=== PATIENT | female | born 1965 | race Two or more races ===

== ENCOUNTER 2019-10-29 16:20 | Inpatient (IN) | payer OTHER ==
[~2019-10-29] VITALS: Ht 175.3 cm; Wt 99.8 kg
--- OUTSIDE RECORDS SUMMARY | 2019-10-29 16:24 | XMS REPORT | Continuity of Care Document ---
Author Author Jaime Pike [employer] AleksandraTANIA [facility] Information [employer] Address Unknown Phone Unavailable Care Team Providers Care Team Leader Surgery Name Role Phone [facility] Information Exchange Unavailable Un available Problems Problem Status Onset Date Classification Date Reported Comments Source BACK PAIN Active [facility] NUTR CONSULT Active [facility] N47.26 Active [facility] Medications No Data Provided for This Section Allergies, Adverse Reactions, Alerts No Known Medication Allergies Immunizations No Data Provided for This Section Results No Data Provided for This Section Pathology Reports No Data Provided for This Section Diagnostic Reports Report Value Date Source Spine lumbar series DX Spine l umbar series DX COMPARISON: None CLINICAL HISTORY: M47.26 Other spondylosis with radiculopathy, lumbar region; FINDINGS: Five views of the lumbar spine are submitted for review. 5 nonrib-bearing lumbar-type vertebra ar e visualized. Visualized bones demonstrate normal radiodensity. There is no evidence for fracture or subluxation. There is mild anterior spondylosis at L3-L4 level. Spondylosis and degenerative disc disease at L4-L5 and L5-S1 levels. Facet arthrosis is noted throughout the mid to lower lumbar spine. The SI joints demonstrate normal morphology. IMPRESSION: Spondylosis, degenerative disc disease and facet arthrosis is present in the mid to lower lumbar spine. No evidence for fracture or subluxation. SL: [id number] 02/01/2016 [facility] Consultation Notes No Data Provided for This Section Discharge Summaries No Data Provided for This Section History and Physicals No Data Provided for This Section Vital Signs No Data Provided for This Section Encounters Location Location Details Encounter Type Encounter Number Reason For Visit Attending Provider ADM Date DC Date Status Source [facility] Outpatient Imaging [facility] Outpatient [id number] Gisselle Crockett 02/06/2014 02/07/2014 [facility] OP Therapy Patients [id number] Thomas Castro 07/28/2014 08/27/2014 [facility] OP Therapy Patients [id number] Thomas Castro 08/31/2014 09/30/2014 [facility] OP Therapy Patients [id number] Thomas Matthew 09/30/2014 10/30/2014 [facility] OP Therapy Patients [id number] Thomas Matthew 11/02/2014 12/02/2014 [facility] OP Therapy Patients [id number] Thomas Matthew 12/10/2014 01/09/2015 [facility] OP Therapy Patients [id number] Thomas Matthew 01/11/2015 02/10/2015 [facility] OP Therapy Patients [id number] Thomas Matthew 02/16/2015 03/18/2015 [facility] Institution Patient [id number] Thomas Matthew 02/22/2015 05/24/2015 [facility] Outpatient [id number] REEBA GIACOMO 03/17/2015 Active [facility] Outpatient [id number] REEBA GIACOMO 03/17/2015 Active [facility] Outpatient [id number] REEBA GIACOMO 03/17/[address] [facility] [place] [place] OP Therapy Patients [id number] Thomas Matthew 03/28/2015 04/27/2015 [facility] OP Therapy Patients [id number] Thomas Matthew 04/27/2015 05/27/2015 [facility] OP Therapy Patients [id number] Thomas Matthew 06/01/2015 07/01/2015 [facility] OP Therapy Patients [id number] Thomas Matthew 07/13/2015 08/12/2015 [facility] OP Therapy Patients [id number] Thomas Matthew 08/29/2015 09/28/2015 [facility] OP Therapy Patients [id number] Thomas Matthew 10/24/2015 11/23/2015 [facility] Outpatient [id number] Base Hamid 02/01/2016 02/02/2016 [facility] Procedures No Data Provided for This Section Assessment and Plan No Data Provided for This Section Plan of Care No Data Provided for This Section Social History Social History Date Source Social History TypeResponse Smoking Status Former smoker; Type: Cigarettes; Exposure to Tobacco Smoke None; Cigarette Smoking Last 365 Days Yes; Reg Smoking Cessation Counseling No1 1Patient quit smoking 01/22/2015 03/18/2015 [facility] Social History TypeResponse Smoking Status Former smoker; Type: Cigarettes; Exposure to Tobacco Smoke None; Cigarette Smoking Last 365 Days Yes; Reg Smoking Cessation Counseling No1 1Patient quit smoking 01/22/2015 03/18/2015 [facility] Family History No Data Provided for This Section Advance Directives No Data Provided for This Section Functional Status No Data Provided for This Section
--- OUTSIDE RECORDS SUMMARY | 2019-10-29 16:24 | XMS REPORT | Summary of Care ---
Author Organization Unknown Address Unknown Phone Unavailable Encounter HQ Giftyr_alonzokrishan([facility]) [id number] Date(s): 02/06/14 - 02/06/14 [facility] Outpatient Imaging [address] [address]- [place] Discharge Disposition: Home Physician Attending: Gisselle Crockett MD Reason for Visit V76.12 - SCREEN MAMMOGRA Problem List No data available for this section Allergies, Adverse Reactions, Alerts No data available for this section Medications No data available for this section Medications Administered During Your Visit No data available for this section Immunizations No data available for this section
--- OUTSIDE RECORDS SUMMARY | 2019-10-29 16:25 | XMS REPORT | Summary of Care ---
Author Author [facility] Organization [facility] Address Unknown Phone Unavailable Encounter HQ Encntr_alias(FIN) [id number] Date(s): 12/10/14 - 01/08/15 [facility] Discharge Disposition: Home Attending Physician: Thomas Castro MD Vital Signs No data available for this section Problem List No data available for this section Allergies, Adverse Reactions, Alerts No data available for this section Medications No data available for this section Results No data available for this section Immunizations No data available for this section Procedures No data available for this section Social History No data available for this section Assessment and Plan No data available for this section
--- OUTSIDE RECORDS SUMMARY | 2019-10-29 16:25 | XMS REPORT | Summary of Care ---
Author Author [facility] Organization [facility] Address Unknown Phone Unavailable Encounter HQ Encntr_alias(FIN) [id number] Date(s): 06/01/15 - 06/30/[address] [facility] Discharge Disposition: Home Attending Physician: Thomas Castro MD Vital Signs No data available for this section Problem List No data available for this section Allergies, Adverse Reactions, Alerts Substance Reaction Severity Status NKDA Active Medications No data available for this section Results No data available for this section Immunizations No data available for this section Procedures No data available for this section Social History Social History Type Response Smoking Status Former smoker; Type: Cigare ttes; Exposure to Tobacco Smoke None; Cigarette Smoking Last 365 Days Yes; Reg Smoking Cessation Counseling No1 1Patient quit smoking 01/22/2015 Assessment and Plan No data available for this section
--- OUTSIDE RECORDS SUMMARY | 2019-10-29 16:25 | XMS REPORT | Summary of Care ---
Author Author [facility] Organization [facility] Address Unknown Phone Unavailable Encounter HQ Encntr_alias(FIN) [id number] Date(s): 06/01/15 - 06/30/15 [facility] Discharge Disposition: Home Attending Physician: Thomas [...]
--- OUTSIDE RECORDS SUMMARY | 2019-10-29 16:25 | XMS REPORT | Summary of Care ---
Author Author [facility] Organization [facility] Address Unknown Phone Unavailable Encounter HQ Encntr_alias(FIN) [id number] Date(s): 04/27/15 - 05/26/15 [facility] Discharge Disposition: Home Attending Physician: Thomas [...]
--- OUTSIDE RECORDS SUMMARY | 2019-10-29 16:25 | XMS REPORT | Summary of Care ---
Author Author [facility] Organization [facility] Address Unknown Phone Unavailable Encounter HQ Encntr_alikrishan(FIN) [id number] Date(s): 02/01/16 - 02/01/16 [facility] [address] [place] [address]- Discharge Disposition: Home or Self Care Attending Physician: Jhon Carlos MD Vital Signs No data available for [...]
--- OUTSIDE RECORDS SUMMARY | 2019-10-29 16:25 | XMS REPORT | Summary of Care ---
Author Author [facility] Organization [facility] Address Unknown Phone Unavailable Encounter HQ Encntr_alias(FIN) [id number] Date(s): 07/13/15 - 08/11/15 [facility] Discharge Disposition: Home Attending Physician: Thomas Castro [...]
--- OUTSIDE RECORDS SUMMARY | 2019-10-29 16:25 | XMS REPORT | Summary of Care ---
Author Author [facility] Organization [facility] Address Unknown Phone Unavailable Encounter HQ Encntr_alias(FIN) [id number] Date(s): 01/11/15 - 02/09/15 [facility] Discharge Disposition: Home Attending Physician: Thomas Castro [...]
--- OUTSIDE RECORDS SUMMARY | 2019-10-29 16:25 | XMS REPORT | Summary of Care ---
Author Author [facility] Organization [facility] Address Unknown Phone Unavailable Encounter HQ Encntr_alias(FIN) [id number] Date(s): 08/29/15 - 09/27/15 [facility] Discharge Disposition: Home Attending Physician: Thomas [...]
--- OUTSIDE RECORDS SUMMARY | 2019-10-29 16:25 | XMS REPORT | Summary of Care ---
Author Organization Unknown Address Unknown Phone Unavailable Encounter HQ Encntr_margareth(JIHAN) [id number] Date(s): 09/30/14 - 10/29/14 [facility] Discharge Disposition: Home Physician Attending: Thomas Castro MD Vital Signs No data [...]
--- OUTSIDE RECORDS SUMMARY | 2019-10-29 16:25 | XMS REPORT | Summary of Care ---
Author Author [facility] Organization [facility] Address Unknown Phone Unavailable Encounter HQ Encntr_alias(FIN) [id number] Date(s): 03/28/15 - 04/26/15 [facility] Discharge Disposition: Home Attending Physician: Thomas [...]
--- OUTSIDE RECORDS SUMMARY | 2019-10-29 16:25 | XMS REPORT | Summary of Care ---
Author Author [facility] Organization [facility] Address Unknown Phone Unavailable Encounter HQ Encntr_alikrishan(FIN) [id number] Date(s): 02/22/15 - 05/23/15 [facility] Attending Physician: Thomas Castro MD Vital Signs [...]
--- OUTSIDE RECORDS SUMMARY | 2019-10-29 16:25 | XMS REPORT | Summary of Care ---
Author Author [facility] Organization [facility] Address Unknown Phone Unavailable Encounter HQ Encntr_alias(FIN) [id number] Date(s): 02/16/15 - 03/17/15 [facility] Discharge Disposition: Home Attending Physician: Thomas Castro [...]
--- OUTSIDE RECORDS SUMMARY | 2019-10-29 16:25 | XMS REPORT | Summary of Care ---
Author Organization Unknown Address Unknown Phone Unavailable Encounter HQ Shmuelntr_margareth(JIHAN) [id number] Date(s): 11/02/14 - 12/01/14 [facility] Discharge Disposition: Home Physician Attending: Thomas Castro [...]
--- OUTSIDE RECORDS SUMMARY | 2019-10-29 16:25 | XMS REPORT | Summary of Care ---
Author Organization Unknown Address Unknown Phone Unavailable Encounter HQ Encntr_margareth(JIHAN) [id number] Date(s): 07/28/14 - 08/26/14 [facility] Discharge Disposition: Home Physician Attending: Thomas [...]
[2019-10-29] MEDS ORDERED: SODIUM CHLORIDE 0.9% 1000ML 1,000 ML IV STA (16:28)
[2019-10-29] MEDS ORDERED: ONDANSETRON HCL INJ 2MG/ML 2ML 2 MG/ML VIAL IV STA (16:28)
[2019-10-29] MEDS ORDERED: KETOROLAC TROMETHAMINE 30 MG/ML VIAL IV STA (16:28)
[2019-10-29] MEDS ORDERED: LIDOCAINE VISC 2% SOLN 15 ML UDC PO ONE (16:30)
[2019-10-29] MEDS ORDERED: MAGNESIUM/ALUMINUM/SIMETHICONE 30 ML UDC PO ONE (16:30)
[2019-10-29] MEDS ORDERED: BELLADONNA ALK/PHENOBARBITAL 5 ML UDC PO SCH (17:15)
[2019-10-29 17:46] LABS: BASOPHILS # (AUTO) 0.1 (0.0-0.1); BASOPHILS % 0.6 % (0.0-1.0); EOSINOPHILS # (AUTO) 0.3 (0.0-0.4); EOSINOPHILS % 3.2 % (0.0-6.0); HEMATOCRIT 39.4 % (34.2-44.1); HEMOGLOBIN 12.6 g/dL (12.0-16.0); LYMPHOCYTES # (AUTO) 1.5 (1.0-3.2); LYMPHOCYTES % 14.8 % (18.0-39.1); MEAN CORPUSCULAR VOLUME 84.5 fL (81-99); MONOCYTES # (AUTO) 0.5 (0.2-0.8); MONOCYTES % 4.6 % (4.4-11.3); NEUTROPHILS # (AUTO) 7.6 (2.1-6.9); NEUTROPHILS % 76.5 % (38.7-80.0); PLATELET COUNT 351 x10e3/uL (140-360); RED BLOOD COUNT 4.66 x10e6/uL (3.6-5.1); RED CELL DISTRIBUTION WIDTH 14.8 % (11.7-14.4)
[2019-10-29 18:05] LABS: ALANINE AMINOTRANSFERASE 90 IU/L (0-55); ALBUMIN 3.8 g/dL (3.5-5.0); ALBUMIN/GLOBULIN RATIO 1.1 (0.8-2.0); ALKALINE PHOSPHATASE 139 IU/L (40-150); AMYLASE 64 U/L (25-125); BLOOD UREA NITROGEN 13 mg/dL (7-26); BUN/CREATININE RATIO 17 (6-25); CALCIUM 9.9 mg/dL (8.4-10.2); CARBON DIOXIDE 26 mmol/L (22-29); CHLORIDE 104 mmol/L (98-107); CREATINE KINASE 60 IU/L (29-168); CREATININE, SERUM 0.77 mg/dL (0.57-1.11); EST GLOMERULAR FILTRATION RATE > 60 ML/MIN (60-); GLUCOSE 91 mg/dL (74-118); LIPASE 11 U/L (8-78); SODIUM 141 mmol/L (136-145)
--- NOTE | 2019-10-29 18:59 | Diagnostic Imaging Report ---
HISTORY: Right-sided abdominal pain ^ABD PAIN ^20191029 ^1805 ^Y TECHNIQUE: Selected images from limited abdominal ultrasound provided for INTERPRETATION: COMPARISON: None. FINDINGS: Pancreas: Visualized portions are increased in echotexture suggestive of lipomatosis without mass or ductal dilatation. Liver: Measures 15.6 cm in sagittal plane. The echotexture is normal. No mass in the visualized portions. Portal Vein: Measures 0.9 cm. Proper directional flow on spectral Doppler interrogation. Intrahepatic bile ducts: Normal Gallbladder: Present. There are multiple calcified gallstones and a small amount of sludge in the gallbladder neck. The largest gallstone measures 13 mm. No evidence of mobility on decubitus positioning. No gallbladder wall thickening or pericholecystic fluid. Sonographic Haywood sign is positive. CBD: 0.2 cm. Right Kidney: 9.9 cm in greatest length. The echotexture is normal. There is no evidence for mass. There is no collecting system dilatation or evidence of obstruction. No renal calculi evident. No adjacent free fluid or fluid collections. Visualized IVC and aorta are normal. There is no free fluid. IMPRESSION: 1. Impacted gallstones in the gallbladder. No gallbladder wall thickening. Positive sonographic Haywood sign. Findings are inconclusive for acute cholecystitis. No bile duct dilatation. 2. The remainder of the visualized right upper quadrant is normal. Signed by: Dr. Jax June MD on 10/29/2019 6:56 PM
[2019-10-29] MEDS ORDERED: ONDANSETRON HCL INJ 2MG/ML 2ML 2 MG/ML VIAL IV PRN (19:15)
[2019-10-29] MEDS ORDERED: PIPER-TAZ 3.375 GM / NS 50ML IV SCH (19:15)
--- OUTSIDE RECORDS SUMMARY | 2019-10-29 19:18 | XMS REPORT ---
Author Author [facility] Organization [facility] Address Unknown Phone Unavailable Care Team Providers Care Investigative Writer Name Role Phone MANSFIELDHAYLEY Unavailable Unavailable Problems This patient has no known problems. Allergies, Adverse Reactions, Alerts This patient has no known allergies or adverse reactions. Medications This patient has no known medications. Results Test Description Test Time Test Comments Text Results Atomic Results Result Comments US GALLBLADDER 2019-10-29 18:53:00 [place] [address] Patient Name: TANIA FAULKNER MR #: [id number] : 1965 Age/Sex: 54/F Req #: [id number] Adm Physician: Ordered by: HAYLEY ENGEL FAILURE ANALYSIS ENGINEER Report #: [id number] Location: ER Room/Bed: Procedure: [id number] US/US GALLBLADDER Exam Date: 10/29/19 Exam Time: 1805 REPORT STATUS: Signed HISTORY: Right-sided abdominal pain ABD PAIN 20191029 Y TECHNIQUE: Selected images from limited abdominal ultrasound provided for INTERPRETATION: COMPARISON: None. FINDINGS: Pancreas: Visualized portions are increased in echotexture suggestive of lipomatosis without mass or ductal dilatation. Liver: Measures 15.6 cm in sagittal plane. The echotexture is normal. No mass in the visualized portions. Portal Vein: Measures 0.9 cm. Proper directional flow on spectral Doppler interrogation. Intrahepatic bile ducts: Normal Gallbladder: Present. There are multiple calcified gallstones and a small amount of sludge in the gallbladder neck. The largest gallstone measures 13 mm. No evidence of mobility on decubitus positioning. No gallbladder wall thickening or pericholecystic fluid. Sonographic Haywood sign is positive. CBD: 0.2 cm. Right Kidney: 9.9 cm in greatest length. The echotexture is normal. There is no evidence for mass. There is no collecting system dilatation or evidence of obstruction. No renal calculi evident. No adjacent free fluid or fluid collections. Visualized IVC and aorta are normal. There is no free fluid. IMPRESSION: 1. Impacted gallstones in the gallbladder. No gallbladder wall thickening. Positive sonographic Haywood sign. Findings are inconclusive for acute cholecystitis. No bile duct dilatation. 2. The remainder of the visualized right upper quadrant is normal. Signed by: Dr. Sergio June MD on 10/29/2019 6:56 PM Dictated By: SERGIO JUNE MD 54 Transcribed By: SHASTA on 10/29/191855 COPY TO: HAYLEY ENGEL NP
--- OUTSIDE RECORDS SUMMARY | 2019-10-29 19:18 | XMS REPORT | Continuity of Care Document ---
Author Author Jaime Pike [employer] AleksandraTANIA [facility] [employer] Address Unknown Phone Unavailable Care Team Providers Care Electrician Marine Name Role Phone [facility] [employer] Information Exchange Unavailable Un available Problems Problem Status Onset Date Classification Date Reported Comments Source BACK PAIN Active [facility] NUTR CONSULT Active [facility] N47.26 Active [facility] Medications No Data Provided for This [...] No evidence for fracture or subluxation. SL: [id number] 02/01/2016 [facility] Consultation Notes No Data Provided for This Section Discharge Summaries No Data Provided for This Section History and Physicals No Data Provided for This Section Vital Signs No Data Provided for This Section Encounters Location Location Details Encounter Type Encounter Number Reason For Visit Attending Provider ADM Date DC Date Status Source [facility] Outpatient Imaging [facility] Outpatient [id number] Gisselle Crockett 02/06/2014 02/07/2014 [facility] OP Therapy Patients [id number] Thomas Castro 07/28/2014 08/27/2014 [facility] OP Therapy Patients [id number] Thomas Castro 08/31/2014 09/30/2014 [facility] OP Therapy Patients [id number] Thomas Matthew 09/30/2014 10/30/2014 [facility] OP Therapy Patients [id number] Thomas Matthew 11/02/2014 12/02/2014 [facility] OP Therapy Patients [id number] Thomas Matthew 12/10/2014 01/09/2015 [facility] OP Therapy Patients [id number] Thomas Matthew 01/11/2015 02/10/2015 [facility] OP Therapy Patients [id number] Thomas Matthew 02/16/2015 03/18/2015 [facility] Institution Patient [id number] Thomas Matthew 02/22/2015 05/24/2015 [facility] Outpatient [id number] REEBA GIACOMO 03/17/2015 Active [facility] Outpatient [id number] REEBA GIACOMO 03/17/2015 Active [facility] Outpatient [id number] REEBA GIACOMO 03/17/2015 Active [facility] OP Therapy Patients [id number] Thomas Matthew 03/28/2015 04/27/2015 [facility] OP Therapy Patients [id number] Thomas Matthew 04/27/2015 05/27/2015 [facility] OP Therapy Patients [id number] Htomas Matthew 06/01/2015 07/01/2015 [facility] OP Therapy Patients [id number] Thomas Matthew 07/13/2015 08/12/2015 [facility] OP Therapy Patients [id number] Thomas Matthew 08/29/2015 09/28/2015 [facility] OP Therapy Patients [id number] Thomas Matthew 10/24/2015 11/23/2015 [facility] Outpatient [id number] [facility] Hamid 02/01/2016 02/02/2016 [facility] Procedures No [...] Counseling No1 1Patient quit smoking 01/22/2015 03/18/2015 [facility] Social History TypeResponse Smoking Status Former smoker; Type: Cigarettes; Exposure to Tobacco Smoke None; Cigarette Smoking Last 365 Days Yes; Reg Smoking Cessation Counseling No1 1Patient quit smoking 01/22/2015 03/18/2015 [facility] Family History No Data Provided for This Section Advance Directives No Data Provided for This Section Functional Status No Data Provided for This Section
[2019-10-29] MEDS ORDERED: SODIUM CHLORIDE 0.9% 1000ML 1,000 ML ONE (19:35)
[2019-10-29] MEDS: HYDROMORPHONE 1MG/1ML INJ IV PRN (19:56)
[2019-10-29] MEDS: PIPER-TAZ 3.375 GM 50 ML IV SCH (19:56)
[2019-10-29 21:02] VITALS: BP 141/66
[2019-10-29 22:59] VITALS: BP 141/66
[2019-10-29 23:17] VITALS: BP 141/66
[2019-10-30] VITALS (9 sets, daily range): BP systolic 106–136; BP diastolic 52–71
[2019-10-30] MEDS: PIPER-TAZ 3.375 GM 50 ML IV SCH ×3 (04:00→20:23)
[2019-10-30] MEDS ORDERED: SODIUM CHLORIDE 0.9% 250ML 250 ML ONE (05:01)
--- NOTE | 2019-10-30 05:17 | NUR ---
PT IS TRANSFEREE FROM ER .PT IAS AOX3 .RESPIRATIONS ARE EVEN AND UNLABORED .HAS NO PAIN AT THIS TIME .SKIN WARM AND DRY TO TOUCH .CALL LIGHT WITH IN REACH .PT IS NPO CONTINUE TO MONITOR
--- NOTE | 2019-10-30 05:55 | NUR ---
PT RESTING .DENIES PAIN .CALL LIGHT WITH IN REACH.CONTINUE TO MONITOR
[2019-10-30 06:09] LABS: BASOPHILS # (AUTO) 0.1 (0.0-0.1); BASOPHILS % 0.9 % (0.0-1.0); EOSINOPHILS # (AUTO) 0.4 (0.0-0.4); EOSINOPHILS % 5.2 % (0.0-6.0); HEMATOCRIT 35.7 % (34.2-44.1); HEMOGLOBIN 11.2 g/dL (12.0-16.0); LYMPHOCYTES # (AUTO) 1.2 (1.0-3.2); LYMPHOCYTES % 16.6 % (18.0-39.1); MEAN CORPUSCULAR HEMOGLOBIN 26.9 pg (28-32); MEAN CORPUSCULAR HGB CONC 31.4 g/dL (31-35); MEAN CORPUSCULAR VOLUME 85.6 fL (81-99); MONOCYTES # (AUTO) 0.5 (0.2-0.8); MONOCYTES % 7.7 % (4.4-11.3); NEUTROPHILS # (AUTO) 4.9 (2.1-6.9); NEUTROPHILS % 69.5 % (38.7-80.0); PLATELET COUNT 293 x10e3/uL (140-360); RED BLOOD COUNT 4.17 x10e6/uL (3.6-5.1); RED CELL DISTRIBUTION WIDTH 14.9 % (11.7-14.4)
[2019-10-30 06:46] LABS: ALANINE AMINOTRANSFERASE 282 IU/L (0-55); ALBUMIN 3.2 g/dL (3.5-5.0); ALKALINE PHOSPHATASE 151 IU/L (40-150); ANION GAP 11.3 mmol/L (8-16); BLOOD UREA NITROGEN 11 mg/dL (7-26); BUN/CREATININE RATIO 13 (6-25); CALCIUM 8.9 mg/dL (8.4-10.2); CARBON DIOXIDE 28 mmol/L (22-29); CHLORIDE 106 mmol/L (98-107); CREATININE, SERUM 0.82 mg/dL (0.57-1.11); EST GLOMERULAR FILTRATION RATE > 60 ML/MIN (60-); GLUCOSE 96 mg/dL (74-118); POTASSIUM 4.3 mmol/L (3.5-5.1); SODIUM 141 mmol/L (136-145)
[2019-10-30] MEDS ORDERED: VENLAFAXINE HCL75 MG PO (07:16)
--- NOTE | 2019-10-30 07:20 | NUR ---
BEDSIDE REPORT GIVEN TO THE ONCOMING NURSE
[2019-10-30] MEDS ORDERED: BUPIVACAINE 0.5%/EPI 30 ML SDV INJ ONE (12:01)
[2019-10-30] MEDS: SODIUM CHLORIDE 0.9% 1000ML 1,000 ML IV SCH ×3 (13:50→20:23)
[2019-10-30] MEDS ORDERED: MIDAZOLAM HCL 2 MG/2 ML VIAL ONE (13:53)
[2019-10-30] MEDS ORDERED: FENTANYL CITRATE/PF 100MCG/2 ML INJ ONE (13:53)
[2019-10-30] MEDS ORDERED: ACETAMINOPHEN 1000 MG/100 ML IV PRN (14:00)
--- NOTE | 2019-10-30 14:00 | NUR ---
ABD BANDAIDS CDI. PATIENT DENIES PAIN TEARFUL BUT IN GOOD SPIRITS
[2019-10-30] MEDS ORDERED: MEPERIDINE HCL INJ 25 MG/ML VIAL ONE (14:01)
[2019-10-30] MEDS: PANTOPRAZOLE 40 MG 10ML VIAL IV SCH (15:00)
[2019-10-30] MEDS: HYDROCODONE/APAP 7.5MG-325MG 1 EA TAB PO PRN ×2 (16:23→23:06)
--- NOTE | 2019-10-30 18:53 | Operative Report ---
DATE OF PROCEDURE: 10/30/2019 SURGEON: David Aguilera MD PREOPERATIVE DIAGNOSIS: Acute cholecystitis and cholelithiasis. POSTOPERATIVE DIAGNOSIS: Acute cholecystitis and cholelithiasis. OPERATION PERFORMED: Laparoscopic cholecystectomy. ASSISTANTS: Dr. Fazal Aguilera and ALVAREZ Hernandez. ANESTHESIA: General. COMPLICATIONS: None. ESTIMATED BLOOD LOSS: Minimal. DESCRIPTION OF PROCEDURE: With the patient lying in bed in the supine position under good general endotracheal anesthesia, the abdomen was prepped with Betadine solution and draped in the usual manner. A Veress needle was introduced into the umbilicus and pneumoperitoneum was established without any difficulty. An 11 mm trocar was placed into the umbilicus and a 10 mm videolaparoscope was placed into the intraabdominal cavity. Under direct vision, three 5 mm trocars were placed in the right subcostal region. Videolaparoscopy at this point revealed a distended gallbladder that contained numerous small stones. The rest of the abdominal exploration was otherwise within normal limits. The peritoneum overlying the neck of the gallbladder was then opened and the cystic duct was identified. The cystic duct was followed to its junction with the common duct. The cystic duct was then circumferentially dissected away from the common duct, doubly-clipped and divided. The cystic artery was similarly doubly-clipped and divided. The gallbladder was then slowly and carefully taken off the liver bed using the cautery scissors and perfect hemostasis was ascertained. The gallbladder was placed in a pouch and removed through the umbilicus without any difficulty. Videolaparoscopy was then again carried out. The liver bed was found to be perfectly dry, all the excess fluid was aspirated, the pneumoperitoneum was evacuated, and all the trocars were removed under direct vision. The midline fascia at the umbilicus was then closed with a somokg-ew-iltgx of 0 Vicryl. All layers were infiltrated on the way out with solution of 0.25% Marcaine, subcutaneous tissue was approximated with 3-0 Vicryl, and the skin was closed with subcuticular 5-0 Vicryl. Benzoin, Steri-Strips and Band-Aids were applied. The sponge, lap, and needle count was correct. The patient tolerated the procedure well and returned to the recovery room in stable condition. MD DYAANA Villalobos/GIOVANY /[id number]
[2019-10-30] MEDS ORDERED: LIDOCAINE HCL 2% LOCAL INJ 5 ML SDV VIAL INJ ONE (19:16)
[2019-10-30] MEDS ORDERED: SEVOFLURANE INHAL SOLN 250 ML PEN BTL ONE (19:16)
[2019-10-30] MEDS ORDERED: ONDANSETRON HCL INJ 2MG/ML 2ML 2 MG/ML VIAL ONE (19:16)
[2019-10-30] MEDS ORDERED: GLYCOPYRROLATE INJ 0.2 MG/ML VIAL ONE (19:16)
[2019-10-30] MEDS ORDERED: ROCURONIUM BROMIDE 10 MG/ML 5ML VIAL IV ONE (19:16)
[2019-10-30] MEDS ORDERED: PROPOFOL IV EMULSION 10 MG/ML 20 ML VIAL ONE (19:16)
[2019-10-30] MEDS ORDERED: DEXAMETHASONE SOD PHOS INJ 4 MG/ML VIAL ONE (19:16)
[2019-10-30] MEDS ORDERED: NEOSTIGMINE 1 MG/ML 10ML VIAL ONE (19:16)
--- NOTE | 2019-10-30 19:25 | NUR ---
PT (L) AC IV LEAKING. STOPPED IVF AND FLUSHED IV WITH SALINE. LEAKING CONTINUES. SALINE LOCKED IV, POC EXPLAINED TO PT THAT NEW IV TO BE STARTED. PT VERBALIZED UNDERSTANDING.
--- NOTE | 2019-10-30 19:45 | NUR ---
DISCONTINUED IV TO L AC. CATHETER TIP INTACT. 20G IV PLACE TO R FA WITH CDI DRESSING. NO SIGNS OF INFILTRATION. Addendum: 10/31/19 at 0025 by Andra Baker RN PLEASE INCLUDE: 2 ATTEMPTS. FIRST ATTEMPT TO R FA UNSUCCESSFUL.
[2019-10-30] MEDS: HYDROMORPHONE 1MG/1ML INJ IV PRN (20:41)
--- NOTE | 2019-10-30 21:53 | NUR ---
NOTIFIED PE MANAGER OF NEED FOR COVID TEST TO BE PERFORMED FOR PATIENT. TEST ORDERED AT 1504 ON 10/30/2019. WAS INSTRUCTED TO NOTIFY ER TO COME PERFORM TEST. NOTIFIED Shiv ANTHONY RN IN ER THAT TEST NEEDS TO BE PERFORMED. NURSE WILL BE AROUND SHORTLY TO PERFORM TEST.
[2019-10-31] MEDS: PIPER-TAZ 3.375 GM 50 ML IV SCH ×2 (03:56→12:20)
[2019-10-31 04:00] VITALS: BP 123/69
[2019-10-31] MEDS: HYDROCODONE/APAP 7.5MG-325MG 1 EA TAB PO PRN ×2 (04:02→12:20)
[2019-10-31 05:38] LABS: BASOPHILS % 0.4 % (0.0-1.0); EOSINOPHILS # (AUTO) 0.1 (0.0-0.4); HEMATOCRIT 33.2 % (34.2-44.1); HEMOGLOBIN 10.3 g/dL (12.0-16.0); LYMPHOCYTES # (AUTO) 1.2 (1.0-3.2); MEAN CORPUSCULAR HEMOGLOBIN 26.3 pg (28-32); MEAN CORPUSCULAR VOLUME 84.9 fL (81-99); MONOCYTES # (AUTO) 0.5 (0.2-0.8); MONOCYTES % 4.8 % (4.4-11.3); NEUTROPHILS # (AUTO) 9.2 (2.1-6.9); NEUTROPHILS % 82.5 % (38.7-80.0); PLATELET COUNT 277 x10e3/uL (140-360); RED BLOOD COUNT 3.91 x10e6/uL (3.6-5.1); RED CELL DISTRIBUTION WIDTH 14.8 % (11.7-14.4)
[2019-10-31 06:09] LABS: ALANINE AMINOTRANSFERASE 184 IU/L (0-55); ALBUMIN 3.1 g/dL (3.5-5.0); ALKALINE PHOSPHATASE 130 IU/L (40-150); ANION GAP 10.3 mmol/L (8-16); BLOOD UREA NITROGEN 8 mg/dL (7-26); BUN/CREATININE RATIO 10 (6-25); CALCIUM 9.1 mg/dL (8.4-10.2); CARBON DIOXIDE 27 mmol/L (22-29); CHLORIDE 107 mmol/L (98-107); EST GLOMERULAR FILTRATION RATE > 60 ML/MIN (60-); GLUCOSE 101 mg/dL (74-118); POTASSIUM 4.3 mmol/L (3.5-5.1); SODIUM 140 mmol/L (136-145)
--- NOTE | 2019-10-31 06:59 | NUR ---
REPORT GIVEN TO [facility] NURSE. AAOX3. RESTING IN BED. SR UPX2 BED LOCKED AND IN LOW POSITION. NO SIGNS OF INFILTRATION TO IV. CALL LIGHT WITHIN REACH.
[2019-10-31 07:48] VITALS: BP 130/71
[2019-10-31] MEDS: SODIUM CHLORIDE 0.9% 1000ML 1,000 ML IV SCH (09:20)
[2019-10-31] MEDS: HYDROMORPHONE 1MG/1ML INJ IV PRN ×2 (09:20→13:15)
[2019-10-31 11:07] VITALS: BP 137/77
[2019-10-31] MEDS: PANTOPRAZOLE 40 MG 10ML VIAL IV SCH (15:14)
[2019-10-31 15:36] VITALS: BP 134/71
--- NOTE | 2019-10-31 16:22 | NUR ---
Discharge instructions given to the patient. Prescriptions given to the patient. She verbalized understanding. IV to the left forearm was removed with tip intact.
== END 2019-10-31 16:45 | disposition home or self-care (01) | DRG 419 ==
LOC: ER 16:20 → ERHOLD 19:12 → MED/SURG 21:48
PROVIDERS: ADMIT Surgery; ATTEND Surgery
PROC: 0FT44ZZ Resection of Gallbladder, Percutaneous Endoscopic Approach (ICD-10-PCS; principal; 2019-10-30 13:30)
DX: K80.01 Calculus of gallbladder with acute cholecystitis with obstruction (principal)
CPT/HCPCS: 36415; 76705; 80053; 82150; 82550; 82553; 83690; 84484; 85025; 87635; 88304; 99284; C1766; J1100; J1170; J2001; J2175; J2250; J2405; J2543; J2710; J3010; J7030; J7050